=== PATIENT | male | born 2000 | race Caucasian/White ===

== ENCOUNTER 2021-06-04 08:00 | Outpatient (CLI) | payer OTHER | END 2021-06-04 23:59 | LOC: LAB.N 08:00 | PROVIDERS: ATTEND Physician Assistant Medical | DX: U07.1 COVID-19 (principal) ==

== ENCOUNTER 2022-07-19 02:06 | Emergency (ER) | payer OTHER ==
--- NOTE | 2022-07-19 02:12 | ED Physician Documentation ---
PD HPI CHEST PAIN - Stated complaint Stated Complaint: Chest pain - History obtained from History obtained from: Patient - History of Present Illness Timing - onset: Enter time (15:00), Today Timing - details: Abrupt onset Quality: Pain - Additional information Additional information: patient c/o midline low anterior chest pain, onset approximately 3 PM today , waking him from sleep. Has had similar symptoms before but always has been brief and self-limited and thus has not sought medical attention until this (persistent) episode. Pain is worse with PO intake including liquids. Pain does not radiate. Denies fever. Review of Systems Constitutional: denies: Fever, Chills, Sweats Cardiac: reports: Chest pain / pressure. denies: Palpitations Respiratory: denies: Dyspnea, Cough GI: denies: Abdominal Pain, Nausea, Vomiting PD PAST MEDICAL HISTORY - Past Medical History Past Medical History: No - Present Medications Home Medications: Ambulatory Orders Medication Instructions Recorded Confirmed Lidocaine Viscous 2% [Xylocaine 10 ml MM Q4H PRN #100 ml 07/19/22 Viscous 2%] Omeprazole 40 mg PO DAILY #14 cap 07/19/22 - Allergies Allergies/Adverse Reactions: Allergies Allergy/AdvReac Type Severity Reaction Status Date / Time No Known Drug Allergies Allergy Verified 07/19/22 02:28 PD ED PE NORMAL - Vitals Vital signs reviewed: Yes - General General: Alert and oriented X 3, No acute distress, Well developed/nourished - HEENT HEENT: Moist mucous membranes - Cardiac Cardiac: RRR, No murmur - Respiratory Respiratory: No respiratory distress, Clear bilaterally - Abdomen Abdomen: Normal bowel sounds, Soft, Non tender, Non distended - Derm Derm: Normal color, Warm and dry Results - Vitals Vitals: Oxygen O2 Source Room air - EKG (time done) No standard instances Rate: Rate (enter#) (89) Rhythm: NSR [place]: Normal Intervals: Normal [place] QRS: Normal Ischemia: Normal ST segments Other comments: Other comments (RSR' V1, V2) - Labs Labs: Laboratory Tests 07/19/22 07/19/22 07/19/22 02:22 02:22 02:22 WBC 13.7 H RBC 5.09 Hgb 15.5 Hct 44.2 MCV 86.8 MCH 30.5 MCHC 35.1 RDW 12.2 Plt Count 265 MPV 9.9 Neut # (Auto) 10.3 H Lymph # (Auto) 2.1 Hill # (Auto) 1.0 Eos # (Auto) 0.2 Baso # (Auto) 0.0 Absolute Nucleated RBC 0.00 Nucleated RBC % 0.0 ESR D-Dimer < 200.0 L Sodium 136 Potassium 4.0 Chloride 101 Carbon Dioxide 23 Anion Gap 12.0 BUN 14 Creatinine 1.0 Estimated GFR (MDRD) 93 Glucose 120 H Calcium 9.4 Total Bilirubin 1.3 H AST 12 ALT 18 Alkaline Phosphatase 88 C-Reactive Protein Total Protein 7.5 Albumin 4.4 Globulin 3.1 Albumin/Globulin Ratio 1.4 Lipase 28 07/19/22 07/19/22 02:22 02:22 WBC RBC Hgb Hct MCV MCH MCHC RDW Plt Count MPV Neut # (Auto) Lymph # (Auto) Hill # (Auto) Eos # (Auto) Baso # (Auto) Absolute Nucleated RBC Nucleated RBC % ESR 2 D-Dimer Sodium Potassium Chloride Carbon Dioxide Anion Gap BUN Creatinine Estimated GFR (MDRD) Glucose Calcium Total Bilirubin AST ALT Alkaline Phosphatase C-Reactive Protein 1.3 H Total Protein Albumin Globulin Albumin/Globulin Ratio Lipase - Rads (name of study) chest xray Radiology: Prelim report reviewed, EMP read indepedently, See rad report PD Medical Decision Making - ED course Complexity details: considered differential, d/w patient ED course: No concerning findings on EKG, CXR, CBC (mild leukocytosis noted), ER abdominal panel, high sensitivity troponin. He is given IV toradol 15 mg. On reevaluation he appears uncomfortable, reports mild improvement. Due to ongoing symptoms, I then ordered CRP and ESR. ESR result is normal with mildly elevated CRP (1.3). I then performed bedside US of RUQ; I do not see any gallstones nor gallbladder dilatation and he has negative sonographic ferrell's sign. As I was completing the bedside US, he reports feeling symptom improvement. He is then given PO viscous lidocaine with maalox and on subsequent reevaluation, he reports re solution of his symptoms. Etiology of symptoms is not apparent at this time; differential includes gastritis, esophagitis. He is advised to follow up with PMD, return precautions are discussed. Prescriptions for PPI and viscous lidocaine are transmitted to his pharmacy of choice. Departure - Departure Disposition: 01 Home, Self Care Clinical Impression: Epigastric pain Chest pain Qualifiers: Chest pain type: unspecified Qualified Code(s): R07.9 - Chest pain, unspecified Condition: Good Instructions: ED Chest Pain Atypical Unkn Cause Prescriptions: Omeprazole 40 mg PO DAILY #14 cap Lidocaine Viscous 2% [Xylocaine Viscous 2%] 10 ml MM Q4H PRN #100 ml PRN Reason: Abdominal Pain Comments: There were no concerning or diagnostic findings on the test performed tonight. As we discussed, one potential explanation for your symptoms would be inflammation of the stomach lining (gastritis) and/or inflammation of the lining of the esophagus (esophagitis). Neither of these diagnoses would show on any of the test we can perform in the emergency department. Follow-up with your primary care provider, next available appointment. If your symptoms persist or are recurrent, you might benefit from further testing and/or referral to a specialist (gastroenterology). Prescriptions for an acid blocking medication as well as the lidocaine (the numbing medication that was given to you in the emergency department) have been electronically submitted to the [facility] pharmacy in [place]. Discharge Date/Time: 07/19/22 06:30
[2022-07-19] MEDS ORDERED: KETOROLAC 30 MG/ML VIAL IVP STA (02:29)
[2022-07-19 02:35] LABS: BASOPHILS % (AUTO) 0.2 %; EOSINOPHILS # (AUTO) 0.2 10^3/uL (0.0-0.7); EOSINOPHILS % (AUTO) 1.6 %; HCT - HEMATOCRIT 44.2 % (42.0-52.0); HGB - HEMOGLOBIN 15.5 g/dL (14.0-18.0); LYMPHOCYTES # (AUTO) 2.1 10^3/uL (1.5-3.5); MEAN CORPUSCULAR HEMOGLOBIN 30.5 pg (27.0-31.0); MEAN CORPUSCULAR HGB CONC 35.1 g/dL (32.0-36.0); MEAN CORPUSCULAR VOLUME 86.8 fL (80.0-94.0); MEAN PLATELET VOLUME 9.9 fL (7.4-11.4); MONOCYTES % (AUTO) 7.5 %; NEUTROPHILS # (AUTO) 10.3 10^3/uL (1.5-6.6); NEUTROPHILS % (AUTO) 75.4 %; PLT - PLATELET COUNT 265 10^3/uL (130-450); RED BLOOD COUNT 5.09 10^6/uL (4.70-6.10); RED CELL DISTRIBUTION WIDTH 12.2 % (12.0-15.0); WHITE BLOOD COUNT 13.7 x10^3/uL (4.8-10.8)
[2022-07-19 02:44] LABS: ALBUMIN 4.4 g/dL (3.2-5.5); ALBUMIN/GLOBULIN RATIO 1.4 (1.0-2.2); BILIRUBIN,TOTAL 1.3 mg/dL (0.2-1.0); CALCIUM 9.4 mg/dL (8.5-10.3); TOTAL PROTEIN 7.5 g/dL (6.7-8.2)
[2022-07-19] MEDS ORDERED: MAG HYDROX/AL HYDROX/SIMETH 30 ML UDC PO STA (03:35)
[2022-07-19] MEDS ORDERED: LIDOCAINE VISCOUS 2% 15 ML ORAL SYRINGE MM STA (03:35)
[2022-07-19 06:19] VITALS: BP 113/53
--- NOTE | 2022-07-19 08:19 | XRAY Report ---
PROCEDURE: Chest 2 View X-Ray INDICATIONS: chest pain TECHNIQUE: 2 views of the chest were acquired. COMPARISON: None. FINDINGS: Surgical changes and devices: None. Lungs and pleura: No pleural effusions or pneumothorax. Lungs are clear. Mediastinum: Mediastinal contours are normal. Heart size is normal. Bones and chest wall: No suspicious bony abnormalities. Soft tissues appear unremarkable. IMPRESSION: No acute cardiopulmonary process. Agree with preliminary report. Reviewed by: Serge Espino on 07/19/2022 8:18 AM [facility] Approved by: Serge Espino on 07/19/2022 8:18 AM [facility] Station ID: [id number]
== END 2022-07-19 06:30 | disposition home or self-care (01) ==
LOC: ED 02:06
DX: R07.9 Chest pain, unspecified (principal); R10.13 Epigastric pain
CPT/HCPCS: 36415; 71046; 80053; 83690; 85025; 85379; 85651; 86140; 93005; 96374; 99284; A9270

== ENCOUNTER 2023-07-02 08:10 | Emergency (ER) | payer OTHER ==
[2023-07-02 08:26] VITALS: BP 135/61
[2023-07-02] MEDS ORDERED: diphenhydrAMINE 25 MG CAPSULE PO STA (08:35)
--- NOTE | 2023-07-02 08:37 | ED Physician Documentation ---
History of Present Illness - Stated complaint Stated Complaint: POSS ALLERGIC REACTION - Chief complaint Chief Complaint: Allergic Rx - History obtained from History obtained from: Patient - Additonal information Additional information: Patient is a 23-year-old male with a known history of peanut allergy presenting for evaluation of concern for allergic reaction. Patient was eating a chocolate muffin that he got [place] the [place] this morning when upon eating the first bite noted that it had peanuts in it. He did finish a bite and then ate some bites of watermelon. He then started feeling some itchiness in his throat and did not eat any further. He does have an EpiPen but has not used this in years. He did not use his EpiPen this morning. Other than having some itchiness in his throat he denies any other symptoms. Reports his voice feels the same. Denies any difficulty with swallowing or speech. No chest tightness or difficulty breathing. Patient was advised by his command that he needed to come to the emergency department for evaluation. Review of Systems Cardiac: denies: Chest pain / pressure Respiratory: denies: Dyspnea Skin: denies: Rash PD PAST MEDICAL HISTORY - Past Surgical History Past Surgical History: No - Present Medications Home Medications: Ambulatory Orders Medication Instructions Recorded Confirmed Lidocaine Viscous 2% [Xylocaine 10 ml MM Q4H PRN #100 ml 07/19/22 Viscous 2%] Omeprazole 40 mg PO DAILY #14 cap 07/19/22 - Allergies Allergies/Adverse Reactions: Allergies Allergy/AdvReac Type Severity Reaction Status Date / Time peanut Allergy Anaphylaxis Verified 07/02/23 08:19 - Social History Does the pt smoke?: No Smoking Status: Never smoker Does the pt drink ETOH?: No Does the pt have substance abuse?: No - Immunizations Immunizations are current?: Yes - POLST Patient has POLST: No PD ED PE NORMAL - General General: Alert and oriented X 3, No acute distress, Well developed/nourished - HEENT HEENT: Atraumatic, Moist mucous membranes, Pharynx benign (No oral swelling, erythema or exudate, normal speech) - Neck Neck: Supple, no meningeal sign - Cardiac Cardiac: RRR, No murmur - Respiratory Respiratory: No respiratory distress, Clear bilaterally - Abdomen Abdomen: Normal bowel sounds, Soft, Non tender, Non distended - Derm Derm: Warm and dry - Neuro Neuro: Normal speech Results - Vitals Vitals: Vital Signs - 24 hr 07/02/23 07/02/23 08:14 10:35 Temperature 36 C L Heart Rate 78 47 L Respiratory 18 18 Rate Blood Pressure 135/61 H O2 Saturation 98 97 Oxygen O2 Source Room air PD Medical Decision Making - ED course Complexity details: re-evaluated patient ED course: Patient is a 23-year-old male presenting for evaluation after accidental peanut ingestion. Patient has known peanut allergy. He reports some itchiness feelings in his throat. On exam does not have any visible signs of airway swelling or compromise. Normal lung sounds. Vital signs are stable. Does not appear to have anaphylaxis at this time. Was given a dose of Benadryl and observed for about 2 hours with no worsening. Patient also reports his symptoms have resolved. At this time I feel he is appropriate for discharge. He understands indications to use his EpiPen and Does have this on him. 0915 - Resting comfortably. Feeling better. Departure - Departure Disposition: 01 Home, Self Care Clinical Impression: Allergic reaction Condition: Stable Instructions: ED Allergic Reaction General Other Comments: You were evaluated for an allergic reaction to an exposure to peanuts. Fortunately today you have not shown symptoms of anaphylaxis which is a severe allergic reaction. Please be cautious and avoid any peanut exposure going forward. If you develop any worsening symptoms such as tightness in your throat or chest, difficulty breathing, swelling around your mouth, difficulty speaking or swallowing then please use your EpiPen and call 911. Forms: PCP List Discharge Date/Time: 07/02/23 10:42
[2023-07-02 10:44] VITALS: O2SAT 97
== END 2023-07-02 10:42 | disposition home or self-care (01) ==
LOC: ED 08:10
DX: T78.1XXA Other adverse food reactions, not elsewhere classified, initial encounter (principal); R07.0 Pain in throat
CPT/HCPCS: 36415; 99282; 99283; A9270